=== PATIENT | female | born 1975 | race Caucasian/White ===

== ENCOUNTER 2018-06-06 10:30 | Outpatient (RCR) | payer OTHER, SELFPAY ==
--- NOTE | 2018-05-12 16:15 | PTTR_ITS ---
DATE: 05/12/18 SUBJECTIVE: Avril indicates today that she continues to feel about the same. Did get a follow up with Dr. Wheeler, but no formal MRI appointment yet. Is seeing Dr. Wheeler in approx. 1 1/2 wks. OBJECTIVE: Manual therapy: ([id number]). Mobs of the right glenohumeral jt. while in supine. Mobs did include inferior and posterior glides, caudal distractions and AAROM throughout all planes as well as TFM to the anterior cuff and positional release techniques to the posterior cuff while in the prone position. Also, utilized brief TP work to the upper traps and lacey scapular region. Therapeutic procedures ([id number]). * x See flow sheet: focus was on scap stabs and cuff strengthening. * Verbal and tactile cues were provided throughout today's session for proper positioning and isolation of specific muscles. * * Ended with 10 min. of cryotherapy while seated at no charge. Direct treatment time: 30 min. Total treatment time: 30 min. SG/gc
--- NOTE | 2018-05-18 12:50 | PTTR_ITS ---
DATE: May 18, 2018 SUBJECTIVE: Nadia reports minimal to no change post injection at this time. She continues to note daily pain reporting at best 3/10 and at worst 10/10. She reports she feels like she has a broken arm. 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 She notes that her employer has continued to cut her hours. She is frustrated by this. She notes she is unable to ly on the right side to sleep. She notes continued pain with lifting away from her body and overhead. 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 Follows up with Dr. Wheeler tomorrow and is hoping that he moves forward with the MRI. OBJECTIVE: Upon reassessment AROM right shoulder flexion 150 degrees with pain, abduction 100 degrees with pain. IR functional reach to T9, ER 45 degrees. PROM remains WFL with pain at all end ranges. Strength limited secondary to queen with flexion 4-/5, abduction 4/5 with pain, IR 4/5, ER 4-/5 with pain. Manual therapy: ([id number]).Glenohumeral joint mobilization Gr II/III inferior and posterior glides. Caudal distractions also provided to the right shoulder. P /AAROM also provided. Able to obtain full end ranges however continues to pain at end ranges. Remains sensitive to palpation over the right greater tuberosity. She continues to demonstrate very poor posturing with rounded shoulders and thoracic kyphosis. With cueing does better. STM throughout the anterior and posterior cuff provided. CFM to the greater tuberosity for desensitization. Therapeutic procedures ([id number]). * X See flow sheet: Continued focus on RTC strength and scapular stabilization with A/AAROM. * X Provided skilled instruction in proper exercise performance: promoting body mechanics and avoidance of compensatory movement patterns. * X Provided skilled manual cues to facilitate proper muscle recruitment and/ or movement pattern: Ended with cryotherapy for 10 minutes to the right shoulder in seated position post. Will follow up with Dr. Wheeler tomorrow and will proceed via his order following consultation. Minimal to no change overall with functional status post injection. Direct treatment time: 30 minutes Total treatment time: 40 minutes
--- NOTE | 2018-05-25 09:00 | PTTR_ITS ---
DATE: 05/25/18 SUBJECTIVE: Indicated she is frustrated with her right shoulder pain. Saw Dr. Wheeler last week and he is ordering an MRI. Indicated she is now waiting for her insurance company to approve this. 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 Indicated she noticed a difference in her discomfort level being increased with only having PT 1x in the last week. OBJECTIVE: Manual therapy: ([id number]). Mobilization of right mounika-hum jt while in supine consisting of inferior and posterior glides, caudal and lateral distraction, as well as P/AAROM throughout all planes. Still very guarded with AAROM into IR to about 40 degrees and flexion to about 160 degrees. Performed TFM to anterior cuff, brief PRT to posterior cuff and TPM to upper traps / rhomboid regions. Therapeutic procedures ([id number]) * x See flow sheet: Focus on AAROM, scap stabilization and light rotator cuff exercises. * x Provided skilled instruction in proper exercise performance * x Provided skilled manual cues to facilitate proper muscle recruitment and/ or movement pattern * Ended session with cryotherapy x 10 minutes to right shoulder while in seated position. Direct treatment time: 35 minutes Total treatment time: 45 minutes
--- NOTE | 2018-05-27 10:00 | PTTR_ITS ---
DATE: 05/27/18 SUBJECTIVE: Deborah indicates that she still has not made an appt for MRI to be scheduled. Continues to struggle with a cold and is fearful that she will have to move in the MRI making this unsuccessful. Is awaiting for cold symptoms to subside before she actually makes her appt. Indicates she did go home early from work one night this week due to cold symptoms and shoulder discomfort, otherwise R shoulder irritation remains about the same. Manual therapy: ([id number]). Did receive mobilization of the R GH joint while in supine position. This did include inferior/posterior glides, caudal distraction, AAROM throughout all planes as well as transverse friction massage to the anterior cuff, bicep tendon and positional release technique to the posterior cuff. Therapeutic procedures ([id number]). * x See flow sheet: focus was on scap stabilization and light cuff strengthening. Did tolerate prone T,Y,I quite well today. * x Provided skilled instruction in proper exercise performance: * x Provided skilled manual cues to facilitate proper muscle recruitment and/ or movement pattern: Ended with cryotherapy x10 mins to the R shoulder while in seated position at no charge. Direct treatment time: 35 MINS Total treatment time: 45 MINS SG/dl
--- NOTE | 2018-05-30 10:00 | NT_ITS ---
05/30/18 Cancelled due to arriving to PT appt at wrong time. Miracle Paulino, CLIENT SUPPORT COORDINATOR
--- NOTE | 2018-06-02 12:30 | PTTR_ITS ---
DATE: June 02, 2018 SUBJECTIVE: Nadia reports she feels her shoulder is getting worse. She had a really busy weekend at work and her shoulder just seems to get sorer. She has not heard from Dr. Wheeler's in regards to the MRI. She is going to contact them this afternoon. She notes she is getting more tingling and numbness in the right UE. She continues to ice often. OBJECTIVE: Manual therapy: ([id number]). Manual GH joint mobilization Gr II inferior and posterior glides. P/AAROM throughout all planes. Pain with all end range mobility. STM throughout the entire anterior and posterior cuff. CFM to the greater tuberosity. TPR to the upper trap and lev scap. PA mobilization of the thoracic spine Gr II in prone. CFM to the paraspinals. Significant guarding at todays session noted. Had a very difficult time relaxing with mobilization. Increased tone noted throughout. Held on all therex today secondary to increased symptoms. At this time awaiting diagnostics for probable need of further intervention. Ultrasound - (x 8 mins) - [id number]: 3mgh 1. 0 reynolds per cm sq 50% duty cycle to the greater tuberosity on the right shoulder. Ended with cryotherapy to the right shoulder in seated position. Will plan to cut back to one time per week awaiting further intervention. Patient is also in agreement with this plan. Direct treatment time: 30 minutes Total treatment time: 40 minutes
--- NOTE | 2018-06-06 10:30 | PTTR_ITS ---
DATE: 06/06/18 SUBJECTIVE: Deborah indicates her MRI is on Wed. She will then follow up with Dr. Wheeler and proceed per his order at that time. Ultrasound [id number]: Provided to R greater tuberosity 3 mhz, 50% at 1.0w/cm2 to R shoulder. Manual therapy: ([id number]). GH joint mobilization, inferior/posterior glides, caudal distractions, P/AA ROM performed throughout all planes, PNF D1-2. Performed AA within painfree allowance. Soft tissue mobilization throughout the anterior/posterior cuff with trigger point release throughout the periscapular musculature. Declined need of modality post session. Will place Deborah on hold until her MRI with further consultation with Dr. Wheeler for probable further intervention. Direct treatment time: 30 mins Total treatment time: 30 mins KW/dl
== END 2018-06-10 23:59 | disposition home or self-care (01) ==
LOC: PT 10:30
PROVIDERS: PCP Family Medicine; Referring Provider Family Medicine; Visit Provider Family Medicine
DX: S46.901D Unspecified injury of unspecified muscle, fascia and tendon at shoulder and upper arm level, right arm, subsequent encounter (principal)
CPT/HCPCS: 97035; 97110; 97140

== ENCOUNTER → 2018-06-08 00:56 | Outpatient (CLI) | payer OTHER, SELFPAY ==
--- NOTE | 2018-06-08 08:35 | DI.REPORT_ITS ---
SYMPTOM/DIAGNOSIS: CHRONIC RT SHOULDER PAIN, S/P INJURY, RT SHOULDER TENDINITIS , S/P FALL, NUMBNESS AND WEAKNESS INTERMITTENT, M75.41, M75.51, BURSITIS, IMPINGEMENT SYNDROME RIGHT SHOULDER MRI: T 2 axial fat sat, proton density axial, T 2 coronal fat sat, proton density coronal, sagittal T 2 fat sat and T 1 sagittal pulse sequences were performed. The bony signal is intact. There is some thickening and increased signal in the supraspinatus tendon consistent with tendinosis. The infraspinatus, subscapularus and biceps tendons appear intact. As demonstrated, no labral pathology is evident. SUMMARY: There is no evidence of a fracture. There are findings consistent with supraspinatus tendinosis. The examination is otherwise unremarkable.
== END ==
PROVIDERS: PCP Family Medicine; Visit Provider Student in an Organized Health Care Education/Training Program
DX: M25.511 Pain in right shoulder (principal); M75.41 Impingement syndrome of right shoulder; M75.51 Bursitis of right shoulder; M75.81 Other shoulder lesions, right shoulder
CPT/HCPCS: 73221

== ENCOUNTER 2019-08-12 22:40 | Emergency (ER) | payer MEDICAID, SELFPAY ==
[2019-08-12 22:44] VITALS: BP 97/63; PULSE 95; RESP 21; TEMP 37.2; O2SAT 100
--- NOTE | 2019-08-12 22:55 | DI.CT_ITS ---
EXAM: CT ABDOMEN PELVIS WO CLINICAL HISTORY: right flank pain, r/o stone TECHNIQUE: Noncontrast. COMPARISON: No exams were available for comparison FINDINGS: There is a 2 millimeter nonobstructing stone in the mid right kidney. A 3 millimeter nonobstructing s tone is seen in the mid left kidney. There are calcifications in the right lower pelvis which are lik panfilo phleboliths. The bladder is unremarkable. There is a 3 cm. right ovarian cyst. There is no free f luid. No bowel dilatation or inflammatory changes are seen. The heart size is normal. The visualized portions of the lungs appear clear. The liver, gallbladder, spleen, adrenals and pancreas are unremar kable. The aorta shows mild calcification and is normal in diameter. IMPRESSION: Small bilateral nonobstructing renal calculi.
[2019-08-12] MEDS: Cyclobenzaprine 10 MG TAB PO (23:10)
[2019-08-12] MEDS: Acetaminophen 500 MG TAB 1000 MG PO (23:10)
[2019-08-12] MEDS: Lidocaine 5% Patch 1 PATCH TP (23:12)
[2019-08-12] MEDS: Normal Saline 1,000 ML 1000 ML IV (23:21)
[2019-08-12] MEDS: Ketorolac 15 MG/ML VIAL IVP (23:22)
--- NOTE | 2019-08-12 23:32 | ED.GENADUL_ITS ---
Discharge Plan Disposition Patient Disposition: HOME Condition: Good Discharge Details Chief Complaint: FlankPain Clinical Impression: Urinary tract infection, Back pain Primary Care Provider: Jerilyn Mejia ED Provider: Deangelo Hwang Home Meds and New Rx's Prescriptions: New cephalexin [Keflex] 500 mg capsule 500 mg PO QID 7 Days Qty: 28 RF: 0 cyclobenzaprine 10 mg tablet 10 mg PO TID Qty: 14 RF: 0 lidocaine [Lidoderm] 1 PATCH patch 1 patch Topical Q24H Qty: 4 RF: 0 Discharge Instructions Instructions: Urinary Tract Infection in Women (ED), Back Pain (ED) Additional Instructions: At this time your CT scan shows no evidence of a kidney stone that could be causing her pain. There is evidence of 2 small kidney stones in the kidneys, however these are not causing your pain. Your labs do show notable urinary tract infection. You have been given your first dose of antibiotics here, please fill the prescription and start taking the Keflex tomorrow morning. I feel that you have a back spasm secondary to your infection. Please take the muscle relaxant and Lidoderm patch as needed. If your insurance does not cover the Lidoderm patch you can get [id number] 4% Lidoderm patches fairly inexpensively. Please take 1000 mg of Tylenol every 6 hours and 600 mg of ibuprofen every 6 hours as needed for pain. If you notice any worsening of your symptoms, or any new symptoms such as vomiting, diarrhea, fever, chills, shortness of breath, chest pain, numbness, weakness, or fainting , please return immediately to the emergency department for reevaluation. Please follow up with your primary care provider as soon as possible for reassessment and reevaluation. As always, it was a pleasure participating in your medical care today. Stand Alone Forms: Work Release Referrals: Jerilyn Mejia MD, [place] [Primary Care Provider] - Medical Decision Making This is a pleasant 44-year-old female who presents today for evaluation of right flank pain. Patient states that began suddenly 2 hours ago, achy and cramping in nature. Constant but not remitting. She denies any urinary symptoms or complaints otherwise. She denies any tearing or ripping sensation. Physical exam demonstrates right flank and CVA tenderness on percussion. No pain at McBurney's point, negative Begum sign. Vital signs are stable. Differential at this time includes urinary tract infection, pyelonephritis, appendicitis, or kidney stone. We will get a CT scan for further evaluation, treat the patient's pain, rehydrate and reassess. 1:12 AM Patient's laboratory work-up is returned. Minimal white count at 12, minimal left shift. Renal function stable, electrolytes normal. Urinalysis shows evidence of notable urinary tract infection. CT scan shows no evidence of obstructing calculi. She does have a small right-sided ovarian cyst. Signs and symptoms at this time are clinically consistent with ovarian torsion. Signs and symptoms appear clinically consistent with mild pyelonephritis. I do feel that she has a viscerosomatic response leading to subsequent right paraspinal back spasm. Patient feels notably improved at this time and would like to go home. We will send patient home with Lidoderm patches and Flexeril. Discussed importance of avoiding driving, operating heavy machinery or firearms. No clinical evidence of severe pyelonephritis requiring admission. Patient has been given 2 g of Rocephin here in the IV, she will be given Keflex for home use. She will be given a work note. Discussed red flags which to return. I have extensively reviewed the treatment plan and discharge instructions with the patient and their family. I have addressed all patient concerns at this time. The patient and family was made aware of what symptoms to monitor for that would warrant a return to the emergency department. Discussed the plan with the patient and family, they demonstrate verbal understanding and agreement with our assessment and plan at this time. FINDINGS: Liver: No suspicious lesions. Gallbladder and bile ducts: No acute or concerning findings. Pancreas: Unremarkable. Spleen: No suspicious lesions. Adrenals: No suspicious nodule. Kidneys and ureters: 2 mm nonobstructing right renal calculus. 2 mm nonobstructing left renal calculus. Stomach and bowel: No inflammed or dilated loops. Appendix: No evidence of appendicitis. Intraperitoneal space: No free air. No significant fluid collection. Vasculature: Unremarkable. Lymph nodes: Unremarkable. Bladder: Unremarkable as visualized. Reproductive: Suspected a 3 cm right ovarian cyst. Bones/joints: Unremarkable. IMPRESSION: Small nonobstructing stone in each kidney. 3 cm right ovarian cyst. Thank you for allowing us to participate in the care of your patient. Dictated and Authenticated by: Berry Reynolds MD 08/13/2019 12:48 AM Eastern Time ([place] & [place]) HPI General Date/Time Provider Initiated Documentation: 08/12/19 22:47 . HPI Narrative: This is a pleasant 44-year-old female with no significant past medical history who presents today for evaluation of right flank pain. Patient states that 2 hours ago while lying in bed she had a sudden onset of severe achy cramping right flank pain. Patient states that she had just gotten up to go urinate when her symptoms began when she lied back down in bed. No radiation to her groin. She denies fever or chills. She denies dysuria, hematuria, increase in urinary frequency. She denies ever having experienced like this before. She denies any history of kidney stones. She denies any chest pain. She denies any tearing or ripping sensation. She has no other complaints at this time. No other modifying factors. Related Data Home Medications Medication Instructions Recorded Confirmed cephalexin [Keflex] 500 mg PO QID 7 Days #28 cap 08/13/19 cyclobenzaprine 10 mg PO TID #14 tab 08/13/19 lidocaine [Lidoderm] 1 patch TOPICAL Q24H #4 patch 08/13/19 Previous Rx's Medication Instructions Recorded cephalexin [Keflex] 500 mg PO QID 7 Days #28 cap 08/13/19 cyclobenzaprine 10 mg PO TID #14 tab 08/13/19 lidocaine [Lidoderm] 1 patch TOPICAL Q24H #4 patch 08/13/19 Allergies Allergy/AdvReac Type Severity Reaction Status Date / Time Estrogens AdvReac Verified 08/12/19 22:51 General Stated Complaint: FlankPain SURESH: 3 Review of Systems All systems reviewed & are unremarkable except as noted in HPI and below [facility] Social History Smoking/Tobacco Use Status: Current every day Tobacco Type: cigarettes Alcohol Intake: never Drug use: Never Substance use type: does not use Do you feel safe at home: Yes Do you feel safe in your relationship?: Yes Exam Narrative Exam Narrative: 1.Const: Well-nourished, Well-developed, appearing stated age 2.Eyes: PERRL, no conjunctival injection, and symmetrical lids. 3.ENT: Atraumatic external nose and ears. Moist MM. Neck: Symmetric, trachea midline, No thyromegaly. 4.CVS: +S1/S2, No murmurs or gallops. Peripheral pulses 2+ and equal in all extremities. Brisk capillary refill in all extremities. 5.RESP: Unlabored respiratory effort. Clear to auscultation bilaterally. No wheezes rales or rhonchi 6.GI: Soft, Nontender/Nondistended, No hepatosplenomegaly. No guarding or rebound. Mild right flank and CVA tenderness on palpation and percussion. No significant abdominal pain coming no pulsatile abdominal mass. 7.MSK: Normocephalic/Atraumatic, Extremities w/o deformity or ttp No cyanosis or clubbing, Normal movement of all extremities. No midline tenderness to palpation over the CTLS spine. Normal ROM in flexion, extension, side bend, and rotation. Patient has +5 out of 5 strength in the lower extremities in dorsiflexion and plantarflexion, knee flexion and extension, hip flexion and extension. There is +2 over 2 dorsalis pedis pulses bilaterally. There is normal sensation to the skin with light touch at the foot, knee, and hip. Normal saddle sensation. Good sensation over the deep sural nerve area bilaterally. Rectal exam deferred. Reflexes are +2 over 4 in the patellar reflex bilaterally. +5 out of 5 strength in the medial, ulnar, radial nerve distribution bilaterally in the hands as well as intact light touch sensation to these dermatomes on the hands 8.Skin: Warm, Dry. No rashes or lesions. 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 Sensation grossly intact, no focal neurologic deficits. 10.Psych: (AAO) x3. Appropriate mood and affect Course Vital Signs Vital signs: Vital Signs Temperature 37.2 C 08/12/19 22:44 Pulse 95 H 08/12/19 22:44 Respiratory Rate 21 08/12/19 22:44 Blood Pressure 97/63 L 08/12/19 22:44 Pulse Oximetry 100 08/12/19 22:44 Temperature 37.2 C 08/12/19 22:44 Temperature Source Skin 08/12/19 22:44 Pulse 95 H 08/12/19 22:44 Respiratory Rate 21 08/12/19 22:44 Blood Pressure 97/63 L 08/12/19 22:44 Blood Pressure Position Standing 08/12/19 22:44 Pulse Oximetry 100 08/12/19 22:44 Oxygen Delivery Method Room Air 08/12/19 22:44 Oxygen Flow Rate 0 08/12/19 22:44 Pain Level 9 08/12/19 23:22
[2019-08-12 23:38] LABS: Bilirubin Negative (Negative); Blood Moderate (Negative); Clarity Clear (Clear); Glucose Negative (Negative); Ketones Negative (Negative); Leukocyte Esterase Small (Negative); Nitrite Positive (Negative)
[2019-08-12 23:45] LABS: Abs Immature Grans 0.04 k/cumm (0.0-0.09); Absolute Basophil Count 0.03 k/cumm (0.0-0.2); Absolute Eosinophil Count 0.24 k/cumm (0.0-0.7); Absolute Monocyte Count 0.78 k/cumm (0.11-0.7); Basophils % 0.2; Eosinophils % 1.9; HCT 38.6 % (36.0-46.0); HGB 13.1 g/dL (12.0-15.5); Immature Grans % 0.3; Lymphocytes % 17.8; Mean Corp. HGB Concentration 33.9 g/dL (32.0-36.0); Mean Corpuscular Hemoglobin 31.7 pg (27.0-33.0); Mean Corpuscular Volume 93.5 fL (80-95); Mean Platelet Volume 9.8 fL (8.0-11.0); Monocytes % 6.1; Neutrophils % 73.7; Platelet Count 279 x1000/uL (130-400); RBC 4.13 m/cumm (4.00-5.20); RBC Distribution Width 13.3 % (11.7-14.6); White Blood Cell Count 12.83 k/cumm (4.4-10.8)
[2019-08-12 23:47] LABS: Absolute Lymphocyte Count 2.28 k/cumm (1.2-3.4); Absolute Neutrophil Count 9.46 k/cumm (1.2-6.7)
[2019-08-12 23:54] LABS: Bacteria Moderate HPF (Negative); Crystals Negative HPF (Negative); Epithelial Cells Few HPF (Negative); Other Cells Negative (Negative); RBC 20-50 (0-2); WBC >50 HPF (0-5)
[2019-08-12 23:55] LABS: C & S Indicated? Yes; Casts Negative LPF (Negative); Mucus Moderate (Negative)
[2019-08-13 00:05] LABS: ALT 20 U/L (14-59); AST 19 U/L (15-37); Albumin 3.6 g/dL (3.4-5.0); Alkaline Phosphatase 63 U/L (46-116); Anion Gap 7.5 mmol/L (3-11); BUN 6 mg/dL (7-18); Bilirubin, Total 0.3 mg/dL (0.2-1.0); CO2 26.5 mmol/L (21.0-32.0); CREATININE 0.59 mg/dL (0.55-1.02); Calcium 8.5 mg/dL (8.5-10.1); Chloride 102 mmol/L (98-107); Glucose 117 mg/dL (70-100); Potassium 3.6 mmol/L (3.5-5.1); Sodium 136 mmol/L (136-145); Total Protein 6.9 g/dL (6.4-8.2)
[2019-08-13 00:41] VITALS: BP 103/63; PULSE 85; RESP 18; O2SAT 98
[2019-08-13 00:48] VITALS: BP 109/61; PULSE 98; RESP 17; O2SAT 99
--- NOTE | 2019-08-13 00:49 | DI.VRAD_ITS ---
PROCEDURE INFORMATION: Exam: CT Abdomen And Pelvis Without Contrast Exam date and time: 08/12/2019 12:29 AM Clinical history: 44 years old, female; Abdominal pain; Patient HX: Right flank pain; Per PT: Came on about 8pm TECHNIQUE: Imaging protocol: Computed tomography of the abdomen and pelvis without contrast. COMPARISON: No relevant prior studies available. FINDINGS: Liver: No suspicious lesions. Gallbladder and bile ducts: No acute or concerning findings. Pancreas: Unremarkable. Spleen: No suspicious lesions. Adrenals: No suspicious nodule. Kidneys and ureters: 2 mm nonobstructing right renal calculus. 2 mm nonobstructing left renal calculus. Stomach and bowel: No inflammed or dilated loops. Appendix: No evidence of appendicitis. Intraperitoneal space: No free air. No significant fluid collection. Vasculature: Unremarkable. Lymph nodes: Unremarkable. Bladder: Unremarkable as visualized. Reproductive: Suspected a 3 cm right ovarian cyst. Bones/joints: Unremarkable. No acute fracture. Soft tissues: Unremarkable. IMPRESSION: Small nonobstructing stone in each kidney. 3 cm right ovarian cyst. Dictated and Authenticated by: Berry Reynolds MD. Ordering:MAURO Bright MD
[2019-08-13] MEDS: Ondansetron 4 MG/2 ML VIAL IVP (00:51)
[2019-08-13] MEDS: cefTRIAXone 2 GM/50 ML BAG IVPB (00:52)
[2019-08-13 01:20] VITALS: BP 109/65; PULSE 93; RESP 17; TEMP 36.7; O2SAT 99
== END 2019-08-13 01:25 | disposition home or self-care (01) ==
PROVIDERS: Emergency Provider Student in an Organized Health Care Education/Training Program; PCP Family Medicine
DX: N39.0 Urinary tract infection, site not specified (principal); B96.20 Unspecified Escherichia coli [E. coli] as the cause of diseases classified elsewhere; M54.5 Low back pain
CPT/HCPCS: 80053; 87077; 96361; 96365; 96375; 99285; 74176; 81003; 81015; 85025; 87086; 87186; 99284; J1885; J2405

== ENCOUNTER 2019-11-14 15:44 | Outpatient (CLI) | payer MEDICAID, SELFPAY ==
[2019-11-14 16:12] LABS: Abs Immature Grans 0.01 k/cumm (0.0-0.09); Absolute Basophil Count 0.02 k/cumm (0.0-0.2); Absolute Lymphocyte Count 2.05 k/cumm (1.2-3.4); Basophils % 0.3; Eosinophils % 3.1; HCT 39.1 % (36.0-46.0); HGB 13.1 g/dL (12.0-15.5); Immature Grans % 0.2 %; Lymphocytes % 31.6; Mean Corp. HGB Concentration 33.5 g/dL (32.0-36.0); Mean Corpuscular Hemoglobin 31.1 pg (27.0-33.0); Mean Corpuscular Volume 92.9 fL (80-95); Mean Platelet Volume 10.2 fL (8.0-11.0); Monocytes % 7.7; Neutrophils % 57.1; Platelet Count 250 x1000/uL (130-400); RBC 4.21 m/cumm (4.00-5.20); RBC Distribution Width 13.1 % (11.7-14.6); White Blood Cell Count 6.48 k/cumm (4.4-10.8)
[2019-11-14 17:03] LABS: Mono Screening Negative (Negative)
[2019-11-14 17:40] LABS: ESR 5 mm/hr (0-20)
[2019-11-14 18:01] LABS: ALT 13 U/L (14-59); AST 11 U/L (15-37); Albumin 3.7 g/dL (3.4-5.0); Alkaline Phosphatase 62 U/L (46-116); Anion Gap 7.1 mmol/L (3-11); BUN 7 mg/dL (7-18); Bilirubin, Total 0.3 mg/dL (0.2-1.0); CO2 26.9 mmol/L (21.0-32.0); CREATININE 0.62 mg/dL (0.55-1.02); Calcium 8.3 mg/dL (8.5-10.1); Chloride 103 mmol/L (98-107); Glucose 88 mg/dL (74-106); Sodium 137 mmol/L (136-145); Total Protein 6.3 g/dL (6.4-8.2)
== END 2019-11-14 16:04 ==
PROVIDERS: PCP Family Medicine; Visit Provider Family Medicine
DX: R53.83 Other fatigue (principal); R19.7 Diarrhea, unspecified
CPT/HCPCS: 36415; 80053; 85652; 84443; 85025; 86308

== ENCOUNTER 2020-09-13 14:51 | Outpatient (CLI) | payer MEDICAID, SELFPAY ==
--- NOTE | 2020-09-13 09:45 | DI.RAD_ITS ---
EXAM: XR TOE LT SECOND CLINICAL HISTORY: toe pain distal 2nd, injury 6 weeks ago, stubbed, M79.675. TECHNIQUE: 2D digital imaging was performed. COMPARISON: No exams were available for comparison FINDINGS: BONES: There is a fracture seen on the lateral view involving the dorsal base of the distal phalanx. There is mild separation of the fracture fragment.. No bony destructive lesion is seen. JOINTS: No dislocation present. SOFT TISSUE: Normal. IMPRESSION: Fracture at the base of the distal phalanx of the 2nd toe. DATA REPOSITORY: RADIATION DOSE DELIVERED:
== END 2020-09-13 15:11 ==
PROVIDERS: PCP Family Medicine; Visit Provider Physician Assistant
DX: S92.532A Displaced fracture of distal phalanx of left lesser toe(s), initial encounter for closed fracture (principal)
CPT/HCPCS: 73660

== ENCOUNTER 2020-12-04 17:57 | Emergency (ER) | payer MEDICAID, SELFPAY ==
[2020-12-04] VITALS (26 sets, daily range): BP systolic 111–129; BP diastolic 57–97; PULSE 65–90; RESP 12–21; TEMP 36.1; O2SAT 99–100
--- NOTE | 2020-12-04 18:00 | RT.EKG_ITS ---
APPROVED REPORT Exam: Resting ECG Patient Location: E HR:72 bpm ECG Measurements Heart Rate 72 AXIS ND 144 P 83 QRSd 87 QRS 73 QT 392 T 60 QTc 430 Conclusion Sinus rhythm...normal P axis, V-rate 60- 99 Probable left ventricular hypertrophy...multiple LVH criteria I have reviewed and interpreted ECG and agree with software generated interpretation.
--- NOTE | 2020-12-04 18:13 | ED.GENADUL_ITS ---
Discharge Plan Disposition Patient Disposition: HOME Condition: Fair Discharge Details Clinical Impression: Tingling in extremities, Hypokalemia Primary Care Provider: Jerilyn Mejia ED Provider: Eli Del Angel Home Meds and New Rx's Prescriptions: No Action No Known Home Meds RF: 0 Discharge Instructions Instructions: Hypokalemia (ED) Additional Instructions: Your exam is reassuring with no focal neurological findings. You have good strength. No evidence to suggest nerve entrapment at this time. You were noted to have low potassium, this was replenished here today. Please increase your potassium in your diet, attached is information on how to do so. Please follow- up with your primary care in the next week for reevaluation. If you develop weakness, persistent symptoms, headache, fevers or other new/worsening symptoms please seek care urgently once again. Referrals: Jerilyn Mejia [place], [place] [Primary Care Provider] - Discharge Data Discharge Date/Time-TO BE ENTERED AT DEPARTURE: 12/04/20 21:01 Medical Decision Making Patient is a pleasant 45-year-old female presenting today with tingling has been intermittent since Wednesday to the right hand and right foot. She reports that the right hand tingles more when he is in a dependent position the right foot tingles more with ambulation. These do not necessarily always correlate together. She denies any trauma. No fevers or chills. No headache. No visual change. No pain. Denies any chest pain, shortness of breath, recent travel, fevers or chills, change in bowel or bladder habits. No rash. No weight loss. On exam, patient is resting comfortably. Her neurological exam is intact. No sensory deficit is noted. Intact reflexes, no cerebellar dysfunction. Negative Spurling's test. Negative straight leg raise. No midline tenderness.. Pulses in all extremities with brisk capillary refill. EKG was reviewed by Dr. Perez. Patient's exam is reassuring. Differential diagnosis metabolic at this time. Also considered focal neuropathy associated with nerve injury but I do not see any evidence to suggest cauda equina, negative straight leg raise, negative Spurling's. No trauma. The patient had initially been questioned to have a CVA versus TIA. The symptoms been intermittent for the past several days and really seem to be positionally oriented. She is not having any neurologic deficit on exam, no headache. Symptoms have been waxing waning but are readily reproducible. I find this very unlikely. Patient and I did discuss imaging of her head and neck. She would prefer to hold off on this at this time. Labs reviewed. Normal white count, H&H is stable. CMP significant for potassium of 3.0. Will replenish as both oral and IV. Troponin is 0.05. TSH within normal limits. Discussed the findings with the patient. She will begin increasing potassium in her diet. She and I discussed imaging, she would like to hold off at this time and would prefer close follow-up with primary care which I feel is reasonable. We did discuss the differential diagnosis. Her potassium being low is potentially the source but this is not critically low. Patient was replenished here both orally and IV. Patient's presentation. Strict return precautions were discussed. I encouraged that she follow-up with primary care in the next few days for reevaluation. All of her questions and concerns were addressed and she is in agreement this plan. HPI General Mode of arrival: ambulatory . Date/Time Provider Initiated Documentation: 12/04/20 18:03 . Limitations to Documentation: no limitations . Information obtained by: patient and RN notes reviewed . History of Present Illness 45 year old F presents to the emergency department with the chief complaint of right hand and foot tingling, described as mild, with intensity rated at 1. Quality is described as other (tingling), and is localized to the right, upper extremity and lower extremity. Patient reports no radiation. Patient started experiencing this week(s) (3) and it has been intermittent. Immobilization improves symptom(s), Movement worsens symptoms . Patient notes no other symptoms.; denies confusion, chest pain, fever/chills, headaches, loss of appetite, nausea/vomiting, rash, shortness of breath and weakness. Patient did receive the following treatments prior to arrival, none Related Data Home Medications Medication Instructions Recorded Confirmed Unknown [No Known Home Meds] 09/13/20 12/04/20 Allergies Allergy/AdvReac Type Severity Reaction Status Date / Time Estrogens AdvReac Verified 12/06/20 08:04 General Stated Complaint: CVA/TIA SURESH: 2 Review of Systems Constitutional Constitutional: Reports as per HPI, Denies chills, Denies fatigue, Denies fever(s), Denies frequent falls, Denies headache(s), Denies snoring and Denies weakness Eyes Eyes: Reports as per HPI, Denies blurry vision, Denies change in vision and Reports photophobia ENT Ears, Nose, Mouth, and Throat: Denies vertigo, Denies headache(s) and Denies neck pain Cardiovascular Cardiovascular: Reports as per HPI, Denies chest pain, Denies lightheadedness, Denies radiating jaw, neck or arm pain, Denies dyspnea and Denies dyspnea on exertion Respiratory Respiratory: Reports as per HPI, Denies chest congestion, Denies cough, Denies dyspnea, Denies dyspnea on exertion, Denies snoring, Denies stridor and Denies wheezing Gastrointestinal Gastrointestinal: Reports as per HPI, Denies abdominal pain, Denies change in bowel habits, Denies nausea and Denies vomiting Musculoskeletal Musculoskeletal: Reports as per HPI, Denies back pain, Denies myalgias, Denies muscle cramps, Denies neck pain, Denies numbness and Reports tingling (interm ittent ) Integumentary/Breasts Skin/Breast: Reports as per HPI and Denies rash Neurologic Neurologic: Reports as per HPI, Denies abnormal movements, Denies abnormal speech, Denies behavioral changes, Denies confusion, Denies vertigo, Denies frequent falls, Denies headache(s), Denies localized weakness, Denies numbness, Denies sensory deficit, Reports tingling (intermittent ) and Denies weakness Psychiatric Psychiatric: Denies behavioral changes and Denies confusion Endocrine Endocrine: Denies fatigue Allergic/Immunologic Allergic/Immunologic: Denies wheezing [facility], [facility] Medical History (Updated 12/04/20 @ 20:15 by SARTHAK Cueto) Fracture of second toe, left, closed Tobacco use disorder Surgical History Excision, Bone Cyst (01/07/88) right wrist Tonsillectomy and adenoidectomy (01/06/82) Social History Smoking/Tobacco Use Status: Current every day Tobacco Type: cigarettes Smoking risk assessment performed?: Yes Alcohol Intake: never Drug use: Never Substance use type: does not use Do you feel safe at home: Yes Do you feel safe in your relationship?: Yes Exam Const General: cooperative, healthy appearing, comfortable, no acute distress, well developed and well groomed Nutritional Appearance: average body habitus and well nourished Orientation: alert, awake and oriented x3 [facility]: normal to inspection, no palpable skull fracture, normocephalic and atraumatic Ears: hearing grossly normal bilaterally, external ears normal and TM's normal bilaterally General nose exam: external nose normal Mouth: oral mucosae normal and moist mucous membranes Throat: posterior oropharynx normal Eyes General: appearance normal, both eyes and all related structures Alignment and Position: alignment normal Periorbital: periorbital findings normal Eyelids: eyelids normal Sclera: sclerae normal Cornea: corneas normal Pupils: PERRL EOM: EOM intact bilaterally Neck Neck: normal visual inspection, full ROM, no lymphadenopathy and no meningeal signs Resp Effort & Inspection: normal respiratory effort, able to speak in complete sentences and no respiratory distress Auscultation: clear to auscultation bilaterally, no rales, no rhonchi and no wheezes Cardio Rate: regular rate Rhythm: regular rhythm Heart Sounds: S1 normal and S2 normal GI Palpation: rigid Auscultation: normal bowel sounds Back/Spine/Pelvis Cervical Spine: normal cervical lordosis and cervical ROM normal Skin General skin exam: no rashes or lesions noted Neuro General: patient alert, patient awake and patient oriented x3 Cranial Nerves: CN's II-XI intact bilaterally Cognition: normal cognition Speech: speech normal Gait: normal gait Motor: muscle tone normal throughout, strength 5/5 throughout, no pronator drift, no movement abnormalities noted and no fasciculations Sensory Exam: no sensory deficits noted DTR's: Rt Triceps: 2+, Lt Triceps: 2+, Rt Biceps: 2+, Lt Biceps: 2+, Rt Brachioradialis: 2+, Lt Brachioradialis: 2+, Rt Patellar: 2+, Lt Patellar: 2+, Rt Ankle: 2+ and Lt Ankle: 2+ Coordination: [id number] test normal, ozhg-lu-hfox test normal, Romberg test normal, Does not sway with eyes open and rapid alternating movement UE normal Extrem General: normal to inspection, capillary refill normal, no pedal edema and no calf tenderness Psych Appearance: grossly normal and well kempt Mental Status: mental status grossly normal Speech and Movement: speech and movement normal Course Vital Signs Vital signs: Vital Signs Temperature 36.1 C L 12/04/20 18:03 Pulse 84 12/04/20 18:03 Respiratory Rate 15 12/04/20 18:03 Blood Pressure 127/86 12/04/20 18:03 Pulse Oximetry 100 12/04/20 18:03 Temperature 36.1 C L 12/04/20 18:03 Temperature Source Temporal Artery Scan 12/04/20 18:03 Pulse 84 12/04/20 18:03 Respiratory Rate 15 12/04/20 18:03 Respiratory Effort Non-Labored 12/04/20 18:07 Blood Pressure 127/86 12/04/20 18:03 Blood Pressure Position Supine 12/04/20 18:03 Pulse Oximetry 100 12/04/20 18:03 Oxygen Delivery Method Room Air 12/04/20 18:03 Oxygen Flow Rate 0 12/04/20 18:03 Pain Level 1 12/04/20 18:03
[2020-12-04] MEDS: Lactated Ringers 1,000 ML 1000 ML IV (18:51)
[2020-12-04 18:52] LABS: Abs Immature Grans 0.02 10^3/uL (0.0-0.06); Absolute Basophil Count 0.04 10^3/uL (0.0-0.2); Absolute Eosinophil Count 0.12 10^3/uL (0.0-0.7); Absolute Lymphocyte Count 2.29 10^3/uL (1.2-3.4); Absolute Monocyte Count 0.38 10^3/uL (0.1-0.8); Absolute Neutrophil Count 4.77 10^3/uL (1.2-6.7); Basophils % 0.5; Eosinophils % 1.6; HCT 41.4 % (36.0-46.0); Immature Grans % 0.3; Lymphocytes % 30.1; MCHC 33.8 % (32.0-36.0); MCV 94.7 fL (80-95); MPV 9.9 fL (8.0-11.0); Neutrophils % 62.5; Nucleated RBC 0 %; Platelet Count 288 10^3/uL (130-400); RBC 4.37 10^6/uL (3.93-5.22); RDW 14.1 % (11.7-14.6); RDW-SD 49.1 fL; WBC 7.62 10^3/uL (4.4-10.8)
[2020-12-04 19:04] LABS: INR 1.1 (0.9-1.1); Prothrombin Time 10.6 sec (9.3-11.0)
[2020-12-04 19:22] LABS: ALT 18 U/L (14-59); AST 12 U/L (15-37); Albumin 3.8 g/dL (3.4-5.0); Alkaline Phosphatase 88 U/L (46-116); Anion Gap 8.5 mmol/L (3-11); BUN 4 mg/dL (7-18); Bilirubin, Total 0.3 mg/dL (0.2-1.0); CO2 25.5 mmol/L (21.0-32.0); CREATININE 0.6 mg/dL (0.55-1.02); Calcium 8.9 mg/dL (8.5-10.1); Chloride 100 mmol/L (98-107); Glucose 94 mg/dL (74-106); Magnesium 1.9 mg/dL (1.8-2.4); Sodium 134 mmol/L (136-145); TSH (W/Ref FT4) 0.95 uIU/mL (0.36-3.74); Total Protein 7.2 g/dL (6.4-8.2); Troponin I < 0.05 ng/mL (<0.06)
[2020-12-04] MEDS: Potassium Chloride 20 MEQ TABCR 40 MEQ PO (19:51)
[2020-12-04] MEDS: POTASSIUM CHLORIDE 10 MEQ/100 ML BAG 100 MEQ IVPB (19:52)
== END 2020-12-04 21:01 | disposition home or self-care (01) ==
PROVIDERS: Emergency Provider Physician Assistant; PCP Family Medicine
DX: R20.2 Paresthesia of skin (principal); E87.6 Hypokalemia
CPT/HCPCS: 80053; 93005; 96361; 96365; 99284; 83735; 84443; 84484; 85025; 85610; 93010; J3480

== ENCOUNTER 2020-12-10 02:57 | Outpatient (CLI) | payer MEDICAID, SELFPAY ==
[2020-12-10 12:36] LABS: Potassium 4.2 mmol/L (3.5-5.1)
== END 2020-12-10 02:58 | disposition home or self-care (01) ==
PROVIDERS: PCP Family Medicine; Visit Provider Nurse Practitioner
DX: E87.6 Hypokalemia (principal)
CPT/HCPCS: 36415; 84132

== ENCOUNTER 2021-04-18 12:23 | Outpatient (REF) | payer MEDICAID, SELFPAY ==
--- NOTE | 2021-04-18 09:35 | PAPFT_PTH ---
PATIENT: Nadia Dillon LOC: [facility] U#:[id number] AGE/SX: 46/F ROOM: RE04/18/[address]: Mery Kaplan, PhD [place]IE[place] : 1975 BED: DIS: 04/18/2021 SPEC #: [id number] RECD: 04/18/21 15:20 STATUS: BENNETT OLSON #: [id number] LISS: 04/18/21 09:[address]: Mery Kaplan DEPT: [facility] Cytology RECD BY: Viktoria Severino ENTERED: 04/18/21 15:21 SP TYPE: PAPFT OTHR DR: Jerilyn Mejia MD, [place] Tissues: 1 - CX/ENDOCX FOR PAP SMEARS Procedures: PAP THIN PREP/UVM Screening HPV DNA PROBE Comments: [id number]
== END 2021-04-18 12:24 | disposition home or self-care (01) ==
LOC: LBN 12:23
PROVIDERS: PCP Family Medicine; Visit Provider Nurse Practitioner
DX: Z12.4 Encounter for screening for malignant neoplasm of cervix (principal); R87.610 Atypical squamous cells of undetermined significance on cytologic smear of cervix (ASC-US); Z11.51 Encounter for screening for human papillomavirus (HPV)
CPT/HCPCS: 88142; 87624

== ENCOUNTER 2021-12-24 17:24 | Emergency (ER) | payer MEDICAID, SELFPAY ==
[2021-12-24 17:28] VITALS: PULSE 88; RESP 18; TEMP 36.7; O2SAT 98
--- NOTE | 2021-12-24 17:30 | DI.RAD_ITS ---
Exam(s) XR SHOULDER RT COMPLETE 2+V EXAM: XR SHOULDER RT COMPLETE 2+V CLINICAL HISTORY: pain, ?dislocation. TECHNIQUE: 2D digital imaging was performed. COMPARISON: CR RIGHT SHOULDER COMPLETE from 02/05/2018 FINDINGS: Four views There is evidence of previous surgery fastener device at the head-neck junction of the humerus, possi jaspal related to prior repair the inferior glenohumeral ligament. No evidence of acute fracture nor di slocation. Minimal degenerative changes. No soft tissue calcifications. AC joint appears unremarka ble. No osseous lesions. IMPRESSION: No acute osseous findings. DATA REPOSITORY: RADIATION DOSE DELIVERED:
--- NOTE | 2021-12-24 17:41 | ED.GENADUL_ITS ---
Discharge Plan Disposition Patient Disposition: HOME Condition: Stable Discharge Details Chief Complaint: Orthopedic Clinical Impression: Pain in right shoulder Primary Care Provider: Jerilyn Mejia ED Provider: Danny Cunningham Home Meds and New Rx's Prescriptions: No Action No Known Home Meds 0RF Discharge Instructions Instructions: Shoulder Pain (ED) Additional Instructions: The xray and cat scan did not show concerning findings. This is likely inflammation of the tendons or bursa of the joint follow up with [facility] as soon as possible you can take 1000mg tylenol and 600mg ibuprofen every 6 hours for pain as needed do not drink alcohol or drive if you take the oxycodone if you feel more ill, have fevers or difficulty breathing return to the emerg ency department Stand Alone Forms: Work Release Medical Decision Making 46 yo female who states she has had tendon repair surgery on her right shoulder years ago comes in with right shoulder pain. She states she felt well all day and was brushing her hair with her right arm and had it over her head when she had immediate pain in the right shoulder. Denies falls or other injuries. She arrives stable though is in pain. She localizes it to the right shoulder and has limited range of motion due to pain. She has no chest pain or back pain. She has no pain in the hand, wrist, forearm, elbow, humerus. She has tenderness over the right anterior and right posterior shoulder with no range of motion due to pain. Given rapid onset of pain concern for dislocation, will obtain xrays and reevaluate xrays negative. She still has severe tenderness with any palpation of the shoulder, and is tender anterior, posterior and lateral on the shoulder without warmth or erythema. Given her continued pain will obtain CT to further evaluate. given acute onset of pain while brushing her hair doubt septic joint. Her pain is reproducible on exam so doubt entities such as acs or dissection ct shows no acute findings. She remains stable still has pain with rom, still no erythema or warmth, and has soft muscles without swellin so doubt compartment syndrome. She is stable for d/c, she will f/u with [facility] and return precautions given. Suspect bursitis vs capsulitis Differential Diagnosis Differential Diagnosis: sprain, fracture, dislocation Medical Records Medical records reviewed: Yes I reviewed the patient's medical records. Imaging Data Radiologic Study: Attestation: I personally reviewed and interpreted this imaging study as follows: Imaging: X-Ray Radiologist's impression: PROCEDURE INFORMATION: Exam: XR Right Shoulder Exam date and time: 12/24/2021 5:41 PM Age: 46 years old Clinical indication: Other: Pain, dislocation TECHNIQUE: Imaging protocol: XR Right shoulder. Views: 2 or more views. COMPARISON: CR RIGHT SHOULDER COMPLETE 02/05/2018 1:46 AM FINDINGS: Bones/joints: Normal trabecular architecture is seen throughout with no evidence of acute fracture or dislocation. Surgical anchor is seen in place along the posterior margin of the surgical neck of the proximal right humerus. Soft tissues: Unremarkable. IMPRESSION: Normal glenohumeral alignment with no acute fracture or dislocation identified. Radiologic Study #2: Attestation: I personally reviewed and interpreted this imaging study as follows: Imaging: CT Scan Radiologist's impression: IMPRESSION: Normal osseous alignment with surgical anchor again seen in place along the posterior aspect of the surgical neck of the proximal right humerus; please correlate with prior surgical history. No acute fractures are detected. HPI General Mode of arrival: ambulatory . Date/Time Provider Initiated Documentation: 12/24/21 17:31 . Limitations to Documentation: no limitations . Information obtained by: patient . History of Present Illness 46 year old F presents to the emergency department with the chief complaint of right shoulder pain, described as moderate, with intensity rated at 8. Quality is described as aching, and is localized to the right and upper extremity. Patient reports no radiation. Patient started experiencing this hour(s) (1) and it has been constant. improves with No relieving factors improve symptom(s), No exacerbating factors reported . Patient notes no other symptoms.. Patient did receive the following treatments prior to arrival, none Related Data Home Medications Medication Instructions Recorded Confirmed Unknown [No Known Home Meds] 09/13/20 04/18/21 Allergies Allergy/AdvReac Type Severity Reaction Status Date / Time Estrogens AdvReac Verified 04/18/21 09:27 General Stated Complaint: Orthopedic SURESH: 4 Review of Systems All systems reviewed & are unremarkable except as noted in HPI and below Constitutional Constitutional: Denies chills, Denies fever(s) and Denies weakness Cardiovascular Cardiovascular: Denies chest pain and Denies dyspnea Respiratory Respiratory: Denies cough and Denies dyspnea Gastrointestinal Gastrointestinal: Denies abdominal pain, Denies nausea and Denies vomiting Musculoskeletal Musculoskeletal: Denies joint swelling Integumentary/Breasts Skin/Breast: Denies rash Neurologic Neurologic: Denies weakness PFSH All Active Problems (Updated 12/24/21 @ 20:05 by Danny Cunningham MD) Pain in right shoulder (Acute) Screening for cervical cancer (Acute) Paresthesia of right foot (Acute) Fracture of second toe, left, closed (Acute) Toe pain, left (Acute) Diarrhea (Acute) Viral illness (Acute) Deficient knowledge of preventive health care (Chronic) Tobacco use disorder (Acute) Subacromial bursitis of right shoulder joint (Acute 03/11/18) Sprain of right rotator cuff capsule, subsequent encounter (Acute 02/09/18) Impingement syndrome of right shoulder (Acute 03/18/18) Medical History Fracture of second toe, left, closed Tobacco use disorder Surgical History Excision, Bone Cyst (01/07/88) right wrist Tonsillectomy and adenoidectomy (01/06/82) Social History Smoking/Tobacco Use Status: Current every day Tobacco Type: cigarettes Smoking risk assessment performed?: Yes Alcohol Intake: never Drug use: Never Substance use type: does not use Household members: significant other and children Housing: apartment Number of Children: 3 Pets and animals: Yes Pets and animals: cat(s), dog(s) and fish What type of physical activity do you participate in: walking Seatbelt use: always Do you feel safe at home: Yes Do you feel safe in your relationship?: Yes Exam Const General: no acute distress Orientation: alert HENMT Head: normal to inspection Ears: external ears normal General nose exam: external nose normal Mouth: moist mucous membranes Eyes General: appearance normal, both eyes and all related structures Neck Neck: normal visual inspection Resp Effort & Inspection: normal respiratory effort and able to speak in complete sentences Cardio Rate: regular rate Skin General skin exam: no rashes or lesions noted Neuro General: patient alert and patient oriented x3 Extrem General: normal to inspection Psych Mental Status: mental status grossly normal Course Vital Signs Vital signs: Vital Signs Temperature 36.7 C 12/24/21 17:28 Pulse 88 12/24/21 17:28 Respiratory Rate 18 12/24/21 17:28 Pulse Oximetry 98 12/24/21 17:28 Temperature 36.7 C 12/24/21 17:28 Temperature Source Tympanic 12/24/21 17:28 Pulse 88 12/24/21 17:28 Respiratory Rate 18 12/24/21 17:28 Respiratory Effort 12/24/21 17:30 Blood Pressure Position Supine 12/24/21 17:28 Pulse Oximetry 98 12/24/21 17:28 Oxygen Delivery Method Room Air 12/24/21 17:28 Oxygen Flow Rate 0 12/24/21 17:28 Pain Level 10 12/24/21 17:28
[2021-12-24] MEDS: HYDROmorphone 2 MG/ML VIAL 0.5 MG IVP (17:55)
[2021-12-24] MEDS: Ketorolac 15 MG/ML VIAL IVP (17:56)
[2021-12-24 18:02] VITALS: BP 131/86; PULSE 80; O2SAT 100
--- NOTE | 2021-12-24 19:00 | DI.CT_ITS ---
Exam(s) CT UPPER EXTREMITY RT WO EXAM: CT UPPER EXTREMITY RT WO CLINICAL HISTORY: severe shoulder pain TECHNIQUE: Imaging Protocol: Axial computed tomography images with coronal and sagittal reformatted images were created and reviewed. CONTRAST MATERIAL: Intravenous: Omnipaque 350 Contrast volume:structured data in ml Contrast route:I V - Oral: yes / no COMPARISON: CR,XR XR SHOULDER RT COMPLETE 2+V from 12/24/2021 FINDINGS: OSSEOUS: There is a surgical anchor at the level of the surgical proximal humerus. No fractures evid ent. No evidence of bony Bankart lesion. No Hill-Sachs deformity. There are minimal if any signifi cant degenerative changes in the joint. No osteophytes evident. AC joint appears slightly widened, possibly related to previous surgery. There are no significant de generative changes at the level of the AC joint. The subacromial space is not diminished. The subac romial space is not diminished and there are no soft tissue calcifications within the subacromial spa ce. Coracoid process is intact as is the acromion. No os acromiale. No osseous abnormalities evide nt scapula. Incidentally noted infiltrate and bullae in the right lung apex. No overlying rib destruction. This finding is superimposed upon COPD emphysematous changes. IMPRESSION: No evidence of fracture or malalignment of the glenohumeral joint. There is a surgical anchor at level the surgical neck of the humerus. Possibly related to prior HAGL repair. RADIATION DOSE DELIVERED: 583.17mGy.cm Total DLP DATA REPOSITORY: All CT scans at this facility are submitted to the National Radiology Data Registry (NRDR) Dose Index Registry (DIR) with the [employer] ([employer]). RADIATION OPTIMIZATION: All CT scans at this facility use at least one of these dose optimization te chniques: automated exposure control; mA and/or kV adjustment per patient size (includes targeted exa ms where dose is matched to clinical indication); or iterative reconstruction.
--- NOTE | 2021-12-24 19:02 | DI.VRAD_ITS ---
PROCEDURE INFORMATION: Exam: XR Right Shoulder Exam date and time: 12/24/2021 5:41 PM Age: 46 years old Clinical indication: Other: Pain, dislocation TECHNIQUE: Imaging protocol: XR Right shoulder. Views: 2 or more views. COMPARISON: CR RIGHT SHOULDER COMPLETE 02/05/2018 1:46 AM FINDINGS: Bones/joints: Normal trabecular architecture is seen throughout with no evidence of acute fracture or dislocation. Surgical anchor is seen in place along the posterior margin of the surgical neck of the proximal right humerus. Soft tissues: Unremarkable. IMPRESSION: Normal glenohumeral alignment with no acute fracture or dislocation identified. Dictated and Authenticated by: Asim Fish MD. Ordering:SHEA Delgado MD
--- NOTE | 2021-12-24 19:52 | DI.VRAD_ITS ---
PROCEDURE INFORMATION: Exam: CT Right Upper Extremity Without Contrast, Shoulder Exam date and time: 12/24/2021 7:08 PM Age: 46 years old Clinical indication: Other: Severe shoulder pain TECHNIQUE: Imaging protocol: CT of the Right upper extremity without contrast was performed. Exam focused on the shoulder. COMPARISON: CR XR SHOULDER RT COMPLETE 2+V 12/24/2021 6:19 PM FINDINGS: Bones/joints: Osseous structures are normally aligned and the right acromioclavicular and glenohumeral joints appear grossly intact. A surgical anchor is again seen in place along the posterior margin of the surgical neck of the proximal right humerus. Soft tissues: Normal. IMPRESSION: Normal osseous alignment with surgical anchor again seen in place along the posterior aspect of the surgical neck of the proximal right humerus; please correlate with prior surgical history. No acute fractures are detected. Dictated and Authenticated by: Asim Fish MD. Ordering:SHEA Delgado MD
[2021-12-24] MEDS: Lidocaine 5% Patch 1 PATCH TP (20:17)
== END 2021-12-24 17:43 | disposition home or self-care (01) ==
PROVIDERS: Emergency Provider Emergency Medicine; PCP Family Medicine
DX: M25.511 Pain in right shoulder (principal)
CPT/HCPCS: 96374; 96375; 99285; 73030; 73200; 99283; J1885

== ENCOUNTER 2022-08-04 11:12 | Outpatient (REF) | payer MEDICAID, SELFPAY ==
[2022-08-04 13:53] LABS: Bilirubin Negative (Negative); Blood Moderate (Negative); Clarity Cloudy (Clear); Glucose Negative (Negative); Ketones Negative (Negative); Leukocyte Esterase Small (Negative); Nitrite Negative (Negative); Specific Gravity >= 1.030 (1.005-1.025); pH 6.5 (5-8)
[2022-08-04 14:11] LABS: Bacteria Moderate HPF (Negative); C & S Indicated? No/Sq. Contamination; Casts Negative LPF (Negative); Crystals Negative HPF (Negative); Epithelial Cells Many HPF (Negative); Mucus Negative (Negative); WBC >50 HPF (0-5)
== END 2022-08-04 11:13 | disposition home or self-care (01) ==
LOC: LBN 11:12
PROVIDERS: PCP Family Medicine; Visit Provider Nurse Practitioner Family
DX: R39.9 Unspecified symptoms and signs involving the genitourinary system (principal)
CPT/HCPCS: 81003; 81015

== ENCOUNTER 2023-12-10 16:15 | Outpatient (REF) | payer MEDICAID, SELFPAY ==
[2023-12-10 14:58] LABS: Bilirubin Negative (Negative); Blood Trace-lysed (Negative); Clarity Sl Cloudy (Clear); Glucose Negative (Negative); Ketones Negative (Negative); Leukocyte Esterase Small (Negative); Nitrite Positive (Negative)
[2023-12-10 15:07] LABS: Bacteria Moderate HPF (Negative); C & S Indicated? Yes; Casts Negative LPF (Negative); Crystals Negative HPF (Negative); Epithelial Cells Few HPF (Negative); Mucus Negative (Negative); RBC 0-2 HPF (0-2)
== END 2023-12-10 16:16 | disposition home or self-care (01) ==
LOC: NCHCN 16:15
PROVIDERS: PCP Family Medicine; Referring Provider Nurse Practitioner Acute Care; Visit Provider Nurse Practitioner Acute Care
DX: N39.0 Urinary tract infection, site not specified (principal); R82.89 Other abnormal findings on cytological and histological examination of urine
CPT/HCPCS: 81003; 81015; 87086

== ENCOUNTER 2024-02-20 14:03 | Emergency (ER) | payer MEDICAID, SELFPAY ==
[2024-02-20 14:07] VITALS: BP 115/75; PULSE 95; RESP 12; TEMP 36.8; O2SAT 99
--- NOTE | 2024-02-20 15:28 | W.ED.GENAD ---
Discharge Plan Disposition Patient Disposition: Home Condition: Good Discharge Details Clinical Impression: Rash and nonspecific skin eruption Primary Care Provider: Jerilyn Mejia ED Provider: Nadia Deleon Home Meds and New Rx's Prescriptions: New cephalexin 500 mg capsule 500 mg PO Q12H Qty: 14 0RF Continued sulfamethoxazole-trimethoprim 800-160 mg tablet 1 tab PO BID Patient Comments: TAKE 1 TABLET BY MOUTH EVERY 12 HOURS FOR 7 DAYS Discontinued cephalexin 500 mg capsule 500 mg PO TID Qty: 15 0RF Discharge Instructions Instructions: Cyst (ED) Additional Instructions: Call your primary care doctor tomorrow to schedule an appointment for within the next 3 days to follow up on your visit here. Keep taking the antibiotic you were prescribed at urgent care. Please also take the new antibiotic I prescribed today. Follow the directions on the bottles. Return to the emergency department for new or worsening symptoms including fever, difficulty breathing, inability to swallow, or if you have any other concerns. Referrals: Jerilyn Mejia [place], [place] [Primary Care Provider[facility] - [facility] General Mode of arrival: ambulatory. Date/Time Provider Initiated Documentation: 02/20/24 14:25. Limitations to Documentation: no limitations. Information obtained by: patient. HPI Narrative: 49yo F presenting with right sided facial lesion. First noted around a week ago, has been increasing in size since then. Is painful. No discharge. Systemically well with no fevers, nausea, or vomiting. Went to urgent care the day before yesterday and started on bactrim; no improvement in symptoms since then. She is otherwise in her usual state of health. Related Data Home Medications Medication Instructions Recorded Confirmed cephalexin 500 mg capsule 500 mg PO Q12H #14 caps 02/20/24 sulfamethoxazole 800 1 tab PO BID 02/20/24 02/20/24 mg-trimethoprim 160 mg tablet Previous Rx's Medication Instructions Recorded cephalexin 500 mg capsule 500 mg PO Q12H #14 caps 02/20/24 Allergies Allergy/AdvReac Type Severity Reaction Status Date / Time Estrogens AdvReac Migraine Verified 12/10/23 12:12 General Stated Complaint: RashLesion SURESH: 4 Review of Systems Narrative: see HPI Exam Narrative Exam Narrative: General: Alert, well appearing, well nourished, in no acute distress. Head: Normocephalic. ~1cm rubbery lesions to right cheek. Mildly TTP. No fluctuance or discharge. No intraoral/mucousal involvement. No warmth or erythema either to lesion or to surrounding skin. Neck: Trachea midline, ?Neck supple. Cardiac: ?No cyanosis. Well perfused. Resp: No respiratory distress. Speaking in full sentences. . Abd: Non-distended. Extremities: ?No deformities.? Neurologic: GCS 15. ? Moves all extremities freely against gravity Course Vital Signs Vital signs: Vital Signs Temperature 36.8 C 02/20/24 14:07 Pulse 95 H 02/20/24 14:07 Respiratory Rate 12 02/20/24 14:07 Blood Pressure 115/75 02/20/24 14:07 Pulse Oximetry 99 02/20/24 14:07 Temperature 36.8 C 02/20/24 14:07 Temperature Source Oral 02/20/24 14:07 Pulse 95 H 02/20/24 14:07 Respiratory Rate 12 02/20/24 14:07 Blood Pressure 115/75 02/20/24 14:07 Blood Pressure Position Sitting 02/20/24 14:07 Pulse Oximetry 99 02/20/24 14:07 Oxygen Delivery Method Room Air 02/20/24 14:07 Oxygen Flow Rate 0 02/20/24 14:07 Pain Level 6 02/20/24 14:07 Medical Decision Making 49yo F presenting with right sided facial lesion. First noted around a week ago, has been increasing in size since then, painful, no discharge, not improved with 48 hours of bactrim. Systemically well. Vital signs reassuring on arrival. On exam ~1cm rubbery lesions to right cheek. Mildly TTP. No fluctuance or discharge. No intraoral/mucousal involvement. No warmth or erythema either to lesion or to surrounding skin. Not consistent with cellulitis; could be facial abscess however cyst, malignancy also possible. Regardless would not incision and drain on face. Not septic. No indication for labs or CT imaging. Will expand abx coverage and add keflex; advised PCP followup early this week. Discharged home; discharge instructions and return precautions were reviewed with patient who verbalized understanding. All questions were answered and she is in agreement with the plan. Quality:SDOH Health Related Social Needs: No Data to Display PFSH All Active Problems (Updated 02/20/24 @ 15:30 by Nadia Deleon MD) Rash and nonspecific skin eruption (Acute) Screening for cervical cancer (Acute) Paresthesia of right foot (Acute) Fracture of second toe, left, closed (Acute) Toe pain, left (Acute) Diarrhea (Acute) Viral illness (Acute) Deficient knowledge of preventive health care (Chronic) Tobacco use disorder (Acute) Subacromial bursitis of right shoulder joint (Acute 03/11/18) Sprain of right rotator cuff capsule, subsequent encounter (Acute 02/09/18) Impingement syndrome of right shoulder (Acute 03/18/18) Medical History Fracture of second toe, left, closed Tobacco use disorder Surgical History Excision, Bone Cyst (01/07/88) right wrist Tonsillectomy and adenoidectomy (01/06/82) Social History Smoking/Tobacco Use Status: Current every day Tobacco Type: cigarettes Smoking risk assessment performed?: Yes Alcohol Intake: never Drug use: Never Substance use type: does not use Household members: significant other and children Housing: apartment Number of Children: 3 Pets and animals: Yes Pets and animals: cat(s), dog(s) and fish What type of physical activity do you participate in: walking Seatbelt use: always Do you feel safe at home: Yes Do you feel safe in your relationship?: Yes
[2024-02-20] MEDS: Cephalexin 500 MG CAP, 4 CAPS/BTL PO (15:55)
== END 2024-02-20 15:57 | disposition home or self-care (01) ==
PROVIDERS: Emergency Provider Student in an Organized Health Care Education/Training Program; PCP Family Medicine
DX: L98.8 Other specified disorders of the skin and subcutaneous tissue (principal); R21 Rash and other nonspecific skin eruption; F17.210 Nicotine dependence, cigarettes, uncomplicated
CPT/HCPCS: 99283

== ENCOUNTER 2024-05-31 08:20 | Outpatient (REF) | payer MEDICAID, SELFPAY ==
--- NOTE | 2024-05-31 08:45 | SKI_PTH ---
PATIENT: Nadia Dillon LOC: [facility] U#:[id number] AGE/SX: 49/F ROOM: RE05/31/[address]: William Galdamez MD : 1975 BED: DIS: 05/31/2024 SPEC #: [id number] RECD: 05/31/24 13:01 STATUS: BENNETT OLSON #: [id number] LISS: 05/31/24 08:[address]: William Galdamez DEPT: Surgical Specimen RECD BY: Elena Loomis ENTERED: 05/31/24 13:01 SP TYPE: SCOTT DEL REAL DR: Jerilyn Mejia MD, [place] Tissues: 1 - SKIN BIOPSY(SHAVE/PUNCH) Procedures: GROSS AND MICRO LEVEL 3 Comments: [id number]
== END 2024-05-31 08:21 | disposition home or self-care (01) ==
LOC: LBN 08:20
PROVIDERS: PCP Family Medicine; Visit Provider Otolaryngology
DX: L98.9 Disorder of the skin and subcutaneous tissue, unspecified (principal)
CPT/HCPCS: 88304; 88305